=== PATIENT | male | born 1990 | race African-American/Black ===

== ENCOUNTER 2017-03-02 20:28 | Emergency (ER) | payer SELFPAY ==
[2017-03-02] MEDS: IPRATRPIUM/ALBUTEROL 0.5/2.5MG 3 ML NEBU. NEB (20:57)
[2017-03-02 21:17] LABS: INFLUENZA A PATIENT POSITIVE (NEGATIVE); INFLUENZA B PATIENT NEGATIVE (NEGATIVE)
[2017-03-02 21:18] LABS: OBC FLU VALID
[2017-03-02] MEDS: IBUPROFEN 400 MG TABLET. PO (21:23)
[2017-03-02] MEDS: IV NORMAL SALINE 1000ML BAG 1,000 ML IV ×2 (21:30→21:58)
== END 2017-03-02 22:40 | disposition home or self-care (01) ==
LOC: ER 20:28
DX: J09.X2 Influenza due to identified novel influenza A virus with other respiratory manifestations (principal)
CPT/HCPCS: 87804; 87804-59; 94640; 96360; 99284-25; J7030; J7620

== ENCOUNTER 2017-03-05 10:04 | Emergency (ER) | payer SELFPAY ==
[2017-03-05 11:36] LABS: NEGATIVE OBC STREP NEG; POSITIVE OBC STREP POS
== END 2017-03-05 11:30 | disposition home or self-care (01) ==
LOC: ER 10:04
DX: J09.X2 Influenza due to identified novel influenza A virus with other respiratory manifestations (principal); H92.02 Otalgia, left ear
CPT/HCPCS: 87070; 87880; 99283